=== PATIENT | male | born 1990 | race Caucasian/White ===

== ENCOUNTER 2019-03-05 04:16 | Emergency (ER) | payer SELFPAY ==
[~2019-03-05] VITALS: Ht 175.3 cm; Wt 68.4 kg
--- NOTE | 2019-03-05 04:33 | NUR ---
PT PRESENTED WITH C/O RIGHT UPPER AND LOWER DENTAL PAIN ,STATED "PAINFUL FOR AWHILE" AND UNBEARABLE FOR THE FEW HOURS, PT TOOK [employer] ASSISTANT AT [id number]. PA AT BEDSIDE FOR EVAL
--- NOTE | 2019-03-05 04:48 | NUR ---
PA AT PT'S BEDSIDE FOR BONE WAX DENTAL APPLICATION. B/P RECHECK 165/121, PA AWARE
[2019-03-05] MEDS ORDERED: ONDANSETRON ODT 4 MG ONE (04:52)
--- NOTE | 2019-03-05 04:57 | NUR ---
PT MEDICATED PER MAR
[2019-03-05] MEDS ORDERED: ONDANSETRON ODT 4 MG PO ONE (05:00)
[2019-03-05 05:37] VITALS: BP 172/118
--- NOTE | 2019-03-05 05:38 | NUR ---
PT RESTING ON GURNEY, STATED " THE PAIN IS BETTER, THE MEDICATION TOOK THE EDGE OFF", RECHAAKASH B/P-172/118, PA UPDATED
--- NOTE | 2019-03-05 05:44 | NUR ---
PT UP TO RR WITH STEADY GAIT, PROVIDED PT WITH URINE CUP
--- NOTE | 2019-03-05 05:49 | NUR ---
URINE SAMPLE SENT
[2019-03-05 06:28] LABS: BASOPHILS # (AUTO) 0.05 x10^3/uL (0-0.1); BASOPHILS % (AUTO) 1 % (0-1); EOSINOPHILS # (AUTO) 0.06 x10^3/uL (0-0.4); EOSINOPHILS % (AUTO) 1 % (1-7); LYMPHOCYTES % (AUTO) 19 % (22-44); MD NO; MEAN CORPUSCULAR HEMOGLOBIN 28.8 pg (27.5-34.5); MEAN CORPUSCULAR HGB CONC 32.1 g/dL (33.2-36.2); MEAN CORPUSCULAR VOLUME 89.7 fL (81-97); MEAN PLATELET VOLUME 9.5 fL (7.4-10.4); MONOCYTES # (AUTO) 0.74 x10^3/uL (0.2-0.8); MONOCYTES % (AUTO) 8 % (2-9); NEUTROPHILS # (AUTO) 6.63 x10^3/uL (1.8-6.8); NEUTROPHILS % (AUTO) 71 % (42-75); PLATELET COUNT 246 x10^3/uL (130-400); RED BLOOD COUNT 5.47 x10^6/uL (4.38-5.82)
[2019-03-05 06:32] LABS: AMPHETAMINE SCREEN, URINE Positive (Negative); BARBITURATE SCREEN, URINE Negative (Negative); BENZODIAZEPINE SCREEN, URINE Negative (Negative); CANNABINOID SCREEN, URINE Positive (Negative); COCAINE SCREEN, URINE Negative (Negative); METHADONE SCREEN, URINE Negative (Negative); OPIATE SCREEN, URINE Negative (Negative)
[2019-03-05 06:36] LABS: ANION GAP 4 mmol/L (5-15); CALCIUM 8.3 mg/dL (8.5-10.1); CHLORIDE 107 mmol/L (98-107); CREATININE 0.97 mg/dL (0.7-1.3)
--- NOTE | 2019-03-05 06:43 | NUR ---
Received report from ROSS Magallanes. All questions answered. Assuming care of pt at this time.
== END 2019-03-05 06:57 | disposition home or self-care (01) ==
LOC: ED 05:36
DX: K02.9 Dental caries, unspecified (principal); K08.89 Other specified disorders of teeth and supporting structures; I10 Essential (primary) hypertension; F15.10 Other stimulant abuse, uncomplicated
CPT/HCPCS: 36415; 80048; 80307; 85025; 99284; Q0162